=== PATIENT | male | born 1940 | race Caucasian/White ===

== ENCOUNTER 2018-09-14 08:10 | Inpatient (IN) | payer MEDICARE, BC ==
[2018-09-04 10:55] VITALS: Ht 185.4 cm; Wt 104.5 kg
[2018-09-14] VITALS (26 sets, daily range): BP systolic 123–178; BP diastolic 64–86; PULSE 62–100; RESP 12–20
[~2018-09-14] VITALS: Ht 185.4 cm; Wt 104.5 kg
[~2018-09-14 08:10] MED LIST: ACETAMINOPHEN 500 MG TAB PO ONE; ACETAMINOPHEN COD; AMLO-145 PO; ASPI-535 PO; ATEN1TAB3 PO; BENA40TA56 PO; CEFAZOLIN 2 GM/50 ML (PMX) 50 ML (FOR WT < 120 KG) IVPB ONE; DEXAMETHASONE 4 MG/ML 1 ML INJ IV ONE; FERR-55 PO; HYDR200T39 PO; LACTATED RINGER'S 1,000 ML IV SCH; SEVOFLURANE 15 MIN ONE; SIMV40TA3 PO; TRAM50TA2 PO
[2018-09-14] MEDS ORDERED: ACETAMINOPHEN 1000MG/100ML IV 100 ML IVPB ONE (09:00)
[2018-09-14] MEDS ORDERED: INDA2.5T ORAL (09:20)
[2018-09-14] MEDS ORDERED: CELE100C82 ORAL (09:20)
[2018-09-14] MEDS ORDERED: RAMI10CA48 ORAL (09:20)
[2018-09-14] MEDS ORDERED: POTA-57 PO (09:21)
[2018-09-14] MEDS ORDERED: ATOR40TA68 ORAL (09:21)
--- NOTE | 2018-09-14 10:29 | HPN ---
Date/Time of Note Date/Time of Note DATE: 09/14/18 TIME: 10:29 Interval H&P Admission Note Pt. seen H&P reviewed: No system changes JAMES HARRIS Sep 14, 2018 10:29
--- NOTE | 2018-09-14 11:27 | PREAC ---
Date/Time of Note Date/Time of Note DATE: 09/14/18 TIME: 11:24 Anesthesia Eval and Record Evaluation Time Pre-Procedure Interview DATE: 09/14/18 TIME: 11:24 Age 78 Sex male NPO: 8 hrs Preoperative diagnosis RIGHT HIP OSTEOARTHRITIS Planned procedure REVISION RIGHT TOTAL HIP ARTHROPLASTY hip Past Medical History Past Medical History: Includes Cardio: HTN, Dyslipidemia Renal: Other (PROSTATE CANCER) Heme: Anemia (ITON DEF) Surgery & Anesthesia Issues No known issue Meds Anticoagulation: No Beta Pete within 24 hr: No Reason Beta Pete not given: Pt. not on B-Pete Reported Medications Atorvastatin* (Atorvastatin*) 40 Mg Tablet, 1 TAB ORAL DAILY 09/14/18 Potassium Chloride* (Klor-Con*) 20 Meq Tabsr, 10 MEQ PO DAILY, TAB.SA 09/14/18 Ramipril (Ramipril) 10 Mg Capsule, 1 CAP ORAL QHS 09/14/18 Indapamide* (Indapamide*) 2.5 Mg Tablet, 1 TAB ORAL DAILY 09/14/18 Amlodipine Besylate* (Amlodipine Besylate*) 5 Mg Tablet, 5 MG PO DAILY 03/24/11 Discontinued Reported Medications Celecoxib (Celecoxib) 100 Mg Capsule, 1 CAP ORAL BID 09/14/18 Hydroxychloroquine Sulfate* (Hydroxychloroquine Sulfate*) 200 Mg Tablet, 200 MG PO WEEKLY 03/24/11 Tramadol HCl (Tramadol HCl) 50 Mg Tablet, 50 MG PO TID 03/24/11 [Acetaminophen Cod] No Conflict Check, TID 03/24/11 Ferrous Sulfate* (Ferrous Sulfate*) 325 Mg Tablet, 325 MG PO DAILY 03/24/11 Aspirin Ec (Aspir 81) 81 Mg Tablet.dr, 81 MG PO DAILY 03/24/11 Benazepril Hcl* (Benazepril Hcl*) 40 Mg Tablet, 40 MG PO DAILY 03/24/11 Atenolol-Chlorthalidone (Atenolol-Chlorthalidone) 1 Tab Tablet, 1 TAB PO DA 03/24/11 Simvastatin (Simvastatin) 40 Mg Tablet, 40 MG PO HS 03/24/11 Current Medications Lactated Ringer's 1,000 ml @ 25 mls/hr Q24H IV ; Start 09/14/18 at 07:00 Meds reviewed: Yes Allergies Uncoded Allergies: NKDA (Allergy, Unknown, 09/13/18) Allergies Reviewed: Yes Labs/Studies Labs Reviewed: Reviewed by anesthesiologist Blood Bank Test 09/14/18 08:52 Antibody Screen POSITIVE Blood Type O POSITIVE test: N/A Studies: ECG (1ST DEGREE AV BLOCK), CXR (CARDIOMEGALY, NAD) Pre-procedure Exam Last vitals Vital Signs Date Temp Pulse Resp B/P (MAP) Pulse Ox O2 O2 Flow FiO2 Time Delivery Rate 09/14/18 97.0 73 16 160/78 98 Room Air 08:37 (105) Airway: Adequate mouth opening, Adequate thyromental dist Mallampati: Mallampati II Teeth: Abnormal (PARTIAL UPPER DENTURE, SEVERAL MISSING) Lung: Normal Heart: Normal ASA Physical Status ASA physical status: 2 Emergency: None Planned Anesthetic General/MAC: ETT Neuraxial: Spinal Planned Pain Management Sub-arachniod narcotics, Parenteral pain med Pre-operative Attestations Prior to commencing anesthesia and surgery, the patient was re-evaluated, there was verification of: *The patient's identity *The results of appropriate recent lab work and preoperative vital signs *The above evaluation not changing prior to induction *Anesthetic plan, risk benefits, alternative and complications discussed with patient/family; questions answered; patient/family understands, accepts and wishes to proceed. Larry Langston M.D. Sep 14, 2018 11:27
[2018-09-14] MEDS ORDERED: POLYMYXIN B 500000 UNIT INJ ONE (11:28)
[2018-09-14] MEDS ORDERED: BACITRACIN 50000 UNITS INJ ONE (11:29)
[2018-09-14] MEDS ORDERED: FENTAnyl 50 MCG/ML VIAL IV PRN ×3 (11:30)
[2018-09-14] MEDS ORDERED: MIDAZOLAM 1 MG/ML 2 ML INJ IV PRN (11:30)
[2018-09-14] MEDS ORDERED: LABETALOL HCL 20MG INJ IV PRN (11:30)
[2018-09-14] MEDS ORDERED: HYDROmorphONE 1 MG/5 ML IV SYRINGE IV PRN ×3 (11:30)
[2018-09-14] MEDS ORDERED: NALBUPHINE HCL (10 MG/1 ML) INJ IV PRN (11:30)
[2018-09-14] MEDS ORDERED: NALOXONE (0.4 MG/ML) INJ IV PRN ×2 (11:30→15:00)
[2018-09-14] MEDS ORDERED: MEPERIDINE 25 MG INJ IV PRN (11:30)
[2018-09-14] MEDS ORDERED: PROPOFOL 20 ML ONE (11:30)
[2018-09-14] MEDS ORDERED: TRIMETHOBENZAMIDE 100 MG/ML VIAL IM PRN ×2 (11:30)
[2018-09-14] MEDS ORDERED: DIPHENHYDRAMINE 50 MG INJ IV PRN ×2 (11:30)
[2018-09-14] MEDS ORDERED: hydrALAzine 20 MG INJ IV PRN (11:30)
[2018-09-14] MEDS ORDERED: ALBUTEROL 0.083% (NEB) 2.5 MG/3 ML AMP HHN PRN (11:30)
[2018-09-14] MEDS ORDERED: OXYCODONE/ACETAMINOPHEN (5/325) TAB PO PRN ×2 (11:30)
[2018-09-14] MEDS ORDERED: ROCURONIUM 50 MG INJ ONE (11:30)
[2018-09-14] MEDS ORDERED: CEFAZOLIN 1 GM INJ ONE (11:30)
[2018-09-14] MEDS ORDERED: HYDROmorphONE 0.5 MG/0.5 ML SYG IV PRN ×2 (11:30)
[2018-09-14] MEDS ORDERED: ONDANSETRON 4 MG INJ IV PRN ×2 (11:30)
[2018-09-14] MEDS ORDERED: GLYCOPYRROLATE 0.4 MG INJ ONE (11:30)
[2018-09-14] MEDS ORDERED: EPHEDrine SULFATE 50 MG/5 ML SYG IV PRN (11:30)
[2018-09-14] MEDS ORDERED: IPRATROPIUM (NEB) 0.5 MG/2.5 ML AMP HHN PRN (11:30)
[2018-09-14] MEDS ORDERED: NEOSTIGMINE 3 MG/3 ML SYRINGE ONE (11:30)
[2018-09-14] MEDS ORDERED: MIDAZOLAM 1 MG/ML 2 ML INJ ONE (11:31)
[2018-09-14] MEDS ORDERED: DEXAMETHASONE 4 MG/ML 5 ML INJ ONE (11:31)
[2018-09-14] MEDS ORDERED: FENTAnyl 50 MCG/ML VIAL ONE (11:31)
[2018-09-14] MEDS ORDERED: ONDANSETRON 4 MG INJ ONE ×2 (11:31→15:25)
[2018-09-14] MEDS ORDERED: morphine SULFATE/PF (10 MG/10 ML) INJ ONE (11:34)
[2018-09-14] MEDS: TRANEXAMIC ACID 1GM/100ML(PMX) 100 ML AT INCISION X1 IVPB ONE ×2 (12:40)
[2018-09-14] MEDS ORDERED: TRANEXAMIC ACID 1GM/100ML(PMX) 100 ML ONE (12:50)
[2018-09-14] MEDS: TRANEXAMIC ACID 1GM/100ML(PMX) 100 ML AT CLOSURE X1 IVPB ONE ×2 (14:09)
[2018-09-14] MEDS ORDERED: SUGAMMADEX SODIUM 200 MG/2 ML VIAL IV ONE (14:26)
--- NOTE | 2018-09-14 14:36 | SIPON ---
Date/Time of Note Date/Time of Note DATE: 09/14/18 TIME: 14:34 Operative Report Preoperative Diagnosis Failed right total hip replacement, kyxnz-el-egpap prosthesis Postoperative Diagnosis Same, biavd-jc-rywig reaction with tissue necrosis and effusion Operation/Procedure Performed Revision of right total hip replacement Surgeon see signature line environmental services assistant PEDRO LUIS Solis Anesthesia: spinal Estimated blood loss: 250 - 300 ml's Transfusion Required none Specimen Cultures, tissue Grafts/Implants [place] cup, size 66 mm, 40 mm ceramic head with +5 length Complications none JAMES HARRIS Sep 14, 2018 14:36
[2018-09-14] MEDS ORDERED: NACL 0.9% 3 ML SYG IV SCH (15:00)
[2018-09-14] MEDS ORDERED: MAGNESIUM HYDROXIDE 30ML CUP PO PRN (15:00)
[2018-09-14] MEDS ORDERED: KETOROLAC 15 MG INJ IV PRN (15:00)
[2018-09-14] MEDS ORDERED: oxyCODONE 5 MG TAB PO PRN ×2 (15:00)
[2018-09-14] MEDS ORDERED: CEFAZOLIN 2 GM/50 ML (PMX) 50 ML IVPB SCH (15:00)
--- NOTE | 2018-09-14 15:19 | PAC ---
Date/Time of Note Date/Time of Note DATE: 09/14/18 TIME: 15:19 Post-Anesthesia Notes Post-Anesthesia Note Last documented vital signs Vital Signs Date Temp Pulse Resp B/P (MAP) Pulse Ox O2 O2 Flow FiO2 Time Delivery Rate 09/14/18 97.0 73 16 160/78 98 Room Air 08:37 (105) Activity: WNL Respiratory function: WNL Cardiovascular function: WNL Mental status: Baseline Pain reasonably controlled: Yes Hydration appropriate: Yes Nausea/Vomiting absent: Yes Larry Langston M.D. Sep 14, 2018 15:19
--- NOTE | 2018-09-14 15:59 | OPR ---
Date/Time of Note Date/Time of Note DATE: 09/14/18 TIME: 15:53 Operative Report Procedure Date: Sep 14, 2018 Preoperative Diagnosis Failed right total hip replacement, ewlym-rc-tgsws hip Postoperative Diagnosis Same, vzzjw-bn-izsql reaction Operation/Procedure Performed Revision of right hip replacement Surgeon see signature line Game Moderator PEDRO LUIS Solis Anesthesia Type: spinal Estimated Blood Loss: 250 - 300 ml's Transfusion none Specimen Cultures, tissue Grafts/Implants 66 mm [place] cup, 40 mm ceramic head, highly cross-linked +4 polyethylene Tubes/Drains None Complications none Pt Condition Post Procedure: stable Disposition: PACU Indications The patient is a 78-year-old male who had a right gzajn-yx-reasq hip replacement. Patient has increased pain swelling and inability to walk. He is diagnosed with a xlzqt-ud-fylmz reaction Procedure Description Patient was placed supine on the operating room table. The right hip was prepped and draped in usual manner. Preoperative antibiotics were administered. An anterior incision was made. The plane between the sartorius and tensor fasc ia naa was developed in a blunt fashion. Branches of the circumflex vessels were identified and cauterized with aqua mantis. The hip capsule was opened. A large effusion was encountered. There was approximately 3-400 mL of effusion. Cultures were obtained. There was evidence of metallosis and staining of the tissue. There was evidence of a tevbl-gh-pbdnp reaction with some necrosis of the lateral and posterior tissue. All abnormal tissue was removed and sent for pathology. The lower extremity was then placed under traction. The femoral head was removed with the help of a bone tamp. The trunnion was cleaned. The stem appeared to be well fixed. The upper part of the stem was thoroughly irrigated and cleaned with gauze. The stem was then retracted out of the way. The cup was completely exposed. The cup was removed with the help of an explant. The acetabulum behind the cup was curetted. There was no evidence of infection. All abnormal tissue around the acetabulum was excised as well. Reaming of the acetabulum was done with [employer] reamers up to a size 65. A 66 cup was well fitting. A 66 mm [place] cup was then placed in 40 degrees of abduction and 20 degrees of anteversion. 2 screws were used to enhance fixation. Liner was placed to accommodate 40 mm femoral head. Trial femoral heads were placed and a 40+5 length resulted in a stable hip with good range of motion. X-rays were obtained to confirm proper placement of the implants and leg length. Leg length was felt to be slightly long compared to the left. This was accepted due to excellent stability of the hip. The trials were then removed. The wound was thoroughly irrigated and hemostasis confirmed. The periarticular tissues were injected with pain cocktail. Final components were then placed including 40 mm +4 highly cross-linked liner and a 40 mm +5 ceramic head. The reduction was stable. The wound was irrigated and closed in layers using #1 strata fix for deep fascia, 2-0 Vicryl for subcutaneous tissue and 3-0 Monocryl for the skin. Before this, the capsule was closed with #5 Ethibond suture. Patient was transferred to the recovery room in stable condition JAMES HARRIS Sep 14, 2018 15:59
[2018-09-14] MEDS: LACTATED RINGER'S 1,000 ML IV SCH ×2 (16:44→20:58)
[2018-09-14] MEDS ORDERED: ACETAMINOPHEN 500 MG TAB PO PRN (19:00)
[2018-09-14] MEDS: BENAZEPRIL 40 MG TAB PO SCH (20:58)
[2018-09-14] MEDS: GABAPENTIN 100 MG CAP PO SCH (20:58)
[2018-09-14] MEDS: CEFAZOLIN 2 GM/50 ML (PMX) 50 ML IVPB SCH (22:23)
--- NOTE | 2018-09-14 23:27 | HP ---
DATE OF ADMISSION: 09/14/2018 CHIEF COMPLAINT: Right hip pain. HISTORY OF PRESENT ILLNESS: The patient is a 78-year-old gentleman with history of hypertension, dys lipidemia, prostate cancer, and history of bilateral total hip replacement. The patient reported his tory of recurrent dislocation. The patient was referred to Dr. Harris. Because of right hip pain. The patient was diagnosed with failed right total hip replacement and was diagnosed with qaapj-nz-spr al hip. The patient was brought in the hospital today and underwent revision of right hip replacemen t. The patient postoperatively is doing better. His pain is well controlled. Denies any chest pain . No reported shortness of breath, no reported fever or chills, no reported nausea or vomiting and n o reported dysuria or hematuria. Morales catheter is draining clear urine. No previous history of foc al weakness. The patient remains awake, alert, and fairly oriented. No recent fever or chills. No history of headache, dizziness, or syncope. No history of focal weakness prior to admission. Denies any numbness, tingling, or weakness in any extremity. REVIEW OF SYSTEMS: A total of 12 systems were reviewed, all pertinent positive and negative findings have been described in HPI. Rest of the systems is unremarkable. The patient does not have any his tory of psychiatric or endocrine disorder. ALLERGIES: NONE. SOCIAL HISTORY: No smoking or alcohol abuse. FAMILY HISTORY: Negative for prostate cancer or coronary artery disease. MEDICATION LIST PRIOR TO ADMISSION: Reviewed. PHYSICAL EXAMINATION: GENERAL: Awake, alert, and fairly oriented. VITAL SIGNS: Temperature 98.2, pulse 74, respirations 15, blood pressure 144/82, and O2 saturation 9 5% on room air. HEENT: Atraumatic head. Conjunctivae normal. Pupils are round and reactive to light. Nose and ear s normal externally. Oropharynx clear. The patient uses dentures. NECK: Supple. No mass, no thyromegaly, and no carotid bruit. CHEST: Fairly clear. No use of accessory muscles. CARDIOVASCULAR: S1 and S2 normal. No murmur. ABDOMEN: Soft, nondistended, and nontender. No palpable mass. EXTREMITIES: No edema. Pedal pulses palpable. SKIN: Without acute rash. NEUROLOGIC: The patient is awake, alert, and fairly oriented with no gross focal deficit although ex am was limited because of recent right hip surgery. LABORATORY DATA: INR 1, PT 10.7, hemoglobin 13.7, white blood cells 6.7, PTT 30, albumin 4.3, alkali ne phosphatase 85, ALT 9, AST 11, bilirubin 0.6, calcium 9.2, bicarbonate 31, creatinine 1, BUN 18, s odium 140, potassium 4.2, and glucose 93. EKG revealed normal sinus rhythm with no ST-T changes. est x-ray: No active disease. IMPRESSION AND PLAN: 1. Failed right total hip replacement, tqbed-sf-wkghs hip status post revision of right total hip re placement. The patient will be started on aspirin for deep vein thrombosis prophylaxis and for pain control, the patient will be started on Celebrex, gabapentin, and oxycodone depending upon severity o f the pain. The patient will also be given Toradol on p.r.n. basis. 2. Hypertension. We will resume Norvasc, Lozol, and JAYA inhibitor at home. We will continue to mon itor electrolytes. 3. Dyslipidemia. We will continue Lipitor. 4. Prostate cancer status post prostatectomy and also some sort of bladder procedure in 2018. Detai ls not available. PT and OT evaluation and treatment as tolerated. The patient also received epidur al Duramorph management. as per anesthesiology. We will continue to follow postoperatively. Dictated By: CHAO BRINK MD AB/NTS Conf#: [id number] DID#: [id number] CC: JAMES HARRIS MD; CHAO BRINK MD;*EndCC*
[2018-09-15] VITALS: BP 103/56; PULSE 77; RESP 20
[2018-09-15 04:00] VITALS: BP 130/65; PULSE 68; RESP 18
[2018-09-15] MEDS: PANTOPRAZOLE (EC) 40 MG TAB PO SCH (05:16)
[2018-09-15] MEDS: CEFAZOLIN 2 GM/50 ML (PMX) 50 ML IVPB SCH ×2 (05:17→12:54)
[2018-09-15 07:25] VITALS: BP 131/62; PULSE 61; RESP 19
[2018-09-15] MEDS: POTASSIUM CHLORIDE (SR) 10 MEQ TAB PO SCH (08:33)
[2018-09-15] MEDS: ATORVASTATIN 40 MG TAB PO SCH (08:33)
[2018-09-15] MEDS: ASPIRIN (EC) 81 MG TAB PO SCH ×2 (08:33→20:59)
[2018-09-15] MEDS: DOCUSATE SODIUM 100 MG CAP PO SCH ×2 (08:33→20:59)
[2018-09-15] MEDS: GABAPENTIN 100 MG CAP PO SCH ×3 (08:33→20:59)
[2018-09-15] MEDS: CELECOXIB 100 MG CAP PO SCH ×2 (08:33→20:59)
[2018-09-15] MEDS: AMLODIPINE 5 MG TAB PO SCH (08:34)
--- NOTE | 2018-09-15 11:57 | PN ---
Date/Time of Note Date/Time of Note DATE: 09/15/18 TIME: 11:51 Assessment/Plan VTE Prophylaxis Risk score (from Ns)>0 risk: 6 SCD applied (from [facility] [place]): Yes SCD contraindicated: other Pharmacological prophylaxis: other Pharm contraindication: other Lines/Catheters IV Catheter Type (from Nrsg): Peripheral IV Urinary Cath still in place: Yes Reason Cath still needed: urinary retention Assessment/Plan Assessment/Plan 1. Failed right total hip replacement, qivhu-dt-iusdf hip status post revision of right total hip replacement. The patient will be started on aspirin for deep vein thrombosis prophylaxis and for pain control, the patient will be started on Celebrex, gabapentin, and oxycodone depending upon severity of the pain. The patient will also be given Toradol on p.r.n. basis. 2. Hypertension. We will resume Norvasc, Lozol, and JAYA inhibitor at home. We will continue to monitor electrolytes. 3. Dyslipidemia. We will continue Lipitor. 4. Prostate cancer status post prostatectomy and also some sort of bladder procedure in 2018. Details not available. PT and OT evaluation and treatment as tolerated. The patient also received epidural Duramorph management. as per anesthesiology. We will continue to follow postoperatively. Result Diagram: 09/15/1841909/15/180 Results 24hrs Laboratory Tests Test 09/15/18 04:20 White Blood Count 10.0 Red Blood Count 3.90 L Hemoglobin 10.7 L Hematocrit 33.9 L Mean Corpuscular Volume 86.9 Mean Corpuscular Hemoglobin 27.4 L Mean Corpuscular Hemoglobin Concent 31.6 L Red Cell Distribution Width 15.5 H Platelet Count 166 Mean Platelet Volume 10.7 H Immature Granulocytes % 0.400 Neutrophils % 90.4 H Lymphocytes % 4.4 L Monocytes % 4.7 Eosinophils % 0.0 Basophils % 0.1 Nucleated Red Blood Cells % 0.0 Immature Granulocytes # 0.040 H Neutrophils # 9.1 H Lymphocytes # 0.4 L Monocytes # 0.5 Eosinophils # 0.0 Basophils # 0.0 Nucleated Red Blood Cells # 0.0 Sodium Level 137 Potassium Level 3.6 Chloride Level 101 Carbon Dioxide Level 28 Anion Gap 8 Blood Urea Nitrogen 23 H Creatinine 0.95 Est Glomerular Filtrat Rate mL/min Glucose Level 123 Calcium Level 8.7 Exam/Review of Systems Exam Vitals Vital Signs Date Temp Pulse Resp B/P (MAP) Pulse Ox O2 O2 Flow FiO2 Time Delivery Rate 09/15/18 98.7 61 19 131/62 96 Room Air 07:25 (85) 09/14/18 2.0 17:45 Intake and Output 09/14/18 09/14/18 09/15/18 1414:59 22:59 06:59 IntakeIntake Total 2600 ml 930 ml 730 ml OutputOutput Total 550 ml 200 ml BalanceBalance 2050 ml 730 ml 730 ml Constitutional: alert, oriented, well developed Psych: nl mood/affect Head: atraumatic ENMT: nl external ears & nose Respiratory: clear to auscultation Cardiovascular: nl pulses, other (S1S2) Gastrointestinal: soft, non-tender Musculoskeletal: nl extremities to inspection Extremities: normal pulses Neurological: nl mental status, nl speech Skin: other (right hip dressing- DDI) Results Results 24hrs Laboratory Tests Test 09/15/18 04:20 White Blood Count 10.0 Red Blood Count 3.90 L Hemoglobin 10.7 L Hematocrit 33.9 L Mean Corpuscular Volume 86.9 Mean Corpuscular Hemoglobin 27.4 L Mean Corpuscular Hemoglobin Concent 31.6 L Red Cell Distribution Width 15.5 H Platelet Count 166 Mean Platelet Volume 10.7 H Immature Granulocytes % 0.400 Neutrophils % 90.4 H Lymphocytes % 4.4 L Monocytes % 4.7 Eosinophils % 0.0 Basophils % 0.1 Nucleated Red Blood Cells % 0.0 Immature Granulocytes # 0.040 H Neutrophils # 9.1 H Lymphocytes # 0.4 L Monocytes # 0.5 Eosinophils # 0.0 Basophils # 0.0 Nucleated Red Blood Cells # 0.0 Sodium Level 137 Potassium Level 3.6 Chloride Level 101 Carbon Dioxide Level 28 Anion Gap 8 Blood Urea Nitrogen 23 H Creatinine 0.95 Est Glomerular Filtrat Rate mL/min Glucose Level 123 Calcium Level 8.7 Medications Medication Current Medications Lactated Ringer's 1,000 ml @ 80 mls/hr [id number] IV Last administered on 09/14/18at 20:58; Admin Dose 80 MLS/HR; Start 09/14/18 at 14:36 Oxycodone HCl (Roxicodone) 15 mg Q4H PRN PO .PAIN; Start 09/14/18 at 15:00 Oxycodone HCl (Roxicodone) 10 mg Q4H PRN PO .PAIN; Start 09/14/18 at 15:00 Oxycodone HCl (Roxicodone) 5 mg Q4H PRN PO .PAIN; Start 09/14/18 at 15:00 Ondansetron HCl (Zofran Inj) 4 mg Q4H PRN IV NAUSEA/VOMITING; Start 09/15/18 at 15:00 Celecoxib (Celebrex) 100 mg BID PO Last administered on 09/15/18at 08:33; Admin Dose 100 MG; Start 09/15/18 at 09:00 Gabapentin (Neurontin) 100 mg TID PO Last administered on 09/15/18 08:33; Admin Dose 100 MG; Start 09/14/18 at 21:00 Pantoprazole (Protonix Tab) 40 mg DAILY@06 PO Last administered on 09/15/18at 05:16; Admin Dose 40 MG; Start 09/15/18 at 06:00 Docusate Sodium (Colace) 200 mg BID PO Last administered on 09/15/18at 08:33; Admin Dose 200 MG; Start 09/15/18 at 09:00; Stop 09/17/18 at 21:01 Magnesium Hydroxide (Milk Of Mag) 30 ml HS PRN PO .CONSTIPATION; Start 09/14/18 at 15:00 Ketorolac Tromethamine (Toradol) 15 mg Q6H PRN IV .PAIN Last administered on 09/15/18at 00:59; Admin Dose 15 MG; Start 09/14/18 at 15:00 Naloxone HCl (Narcan) 0.2 mg Q2M PRN IV .RESP RATE; Start 09/14/18 at 15:00 IV Flush (NS 3 ml) 3 ml per protocol IV ; Start 09/14/18 at 15:00 Aspirin (Halfprin) 81 mg BID PO Last administered on 09/15/18at 08:33; Admin Dose 81 MG; Start 09/15/18 at 09:00 Hydromorphone HCl (Dilaudid) 0.2 mg Q2H PRN IV .PAIN 1-5; Start 09/14/18 at 11:30; Stop 09/15/18 at 15:00 Hydromorphone HCl (Dilaudid) 0.4 mg Q2H PRN IV .PAIN 6-10; Start 09/14/18 at 11:30; Stop 09/15/18 at 15:00 Diphenhydramine HCl (Benadryl) 25 mg Q4H PRN IV .PRURITUS; Start 09/14/18 at 11:30; Stop 09/15/18 at 15:00 Nalbuphine HCl (Nubain) 10 mg Q4H PRN IV .PRURITUS; Start 09/14/18 at 11:30; Stop 09/15/18 at 15:00 Ondansetron HCl (Zofran Inj) 4 mg Q6H PRN IV .NAUSEA/VOMITING; Start 09/14/18 at 11:30; Stop 09/15/18 at 15:00 Trimethobenzamide HCl (Tigan) 200 mg Q6H PRN IM .NAUSEA/VOMITING; Start 09/14/18 at 11:30; Stop 09/15/18 at 15:00 Naloxone HCl (Narcan) 0.2 mg Q2M PRN IV .RESP RATE; Start 09/14/18 at 11:30; Stop 09/15/18 at 15:00 Miscellaneous Information (* Miscellaneous Pharmacy Order) DURAMORPH: 0.1 MG SPI... GIVEN NEURAXIAL XX ; Start 09/14/18 at 11:30; Stop 09/15/18 at 15:00 Cefazolin Sodium/ Dextrose 50 ml @ 100 mls/hr Q8H IVPB Last administered on 09/15/18at 05:17; Admin Dose 100 MLS/HR; Start 09/14/18 at 20:00; Stop 09/15/18 at 12:29 Amlodipine Besylate (Norvasc) 5 mg DAILY PO Last administered on 09/15/18at 08:34; Admin Dose 5 MG; Start 09/15/18 at 09:00 Atorvastatin Calcium (Lipitor) 40 mg DAILY PO Last administered on 09/15/18at 08:33; Admin Dose 40 MG; Start 09/15/18 at 09:00 Indapamide (Lozol) 2.5 mg DAILY PO ; Start 09/15/18 at 09:00 Potassium Chloride (Klor-Con 10) 10 meq DAILY PO Last administered on 09/15/18at 08:33; Admin Dose 10 MEQ; Start 09/15/18 at 09:00 Benazepril HCl (Lotensin) 40 mg QHS PO Last administered on 09/14/18at 20:58; Admin Dose 40 MG; Start 09/14/18 at 21:00 Acetaminophen (Tylenol Tab) 500 mg Q4H PRN PO MILD PAIN(1-3)OR ELEVATED TEMP; Start 09/14/18 at 19:00 BIRGIT DAVE Sep 15, 2018 11:57
[2018-09-15] MEDS: INDAPAMIDE 2.5 MG PO SCH (12:34)
[2018-09-15] MEDS ORDERED: ONDANSETRON 4 MG INJ IV PRN (15:00)
[2018-09-15] MEDS: oxyCODONE 5 MG TAB PO PRN (16:02)
[2018-09-15 19:20] VITALS: BP 130/61; PULSE 60; RESP 20
[2018-09-15] MEDS: BENAZEPRIL 40 MG TAB PO SCH (20:59)
[2018-09-16] MEDS: oxyCODONE 5 MG TAB PO PRN (00:11)
[2018-09-16 02:20] VITALS: BP 159/71; PULSE 62; RESP 20
[2018-09-16] MEDS: PANTOPRAZOLE (EC) 40 MG TAB PO SCH (05:38)
[2018-09-16 08:20] VITALS: BP 142/67; PULSE 59; RESP 18
[2018-09-16] MEDS: DOCUSATE SODIUM 100 MG CAP PO SCH (09:02)
[2018-09-16] MEDS: CELECOXIB 100 MG CAP PO SCH (09:02)
[2018-09-16] MEDS: GABAPENTIN 100 MG CAP PO SCH ×2 (09:02→14:08)
[2018-09-16] MEDS: POTASSIUM CHLORIDE (SR) 10 MEQ TAB PO SCH (09:02)
[2018-09-16] MEDS: ATORVASTATIN 40 MG TAB PO SCH (09:02)
[2018-09-16] MEDS: ASPIRIN (EC) 81 MG TAB PO SCH (09:02)
[2018-09-16] MEDS: AMLODIPINE 5 MG TAB PO SCH (09:02)
[2018-09-16] MEDS: INDAPAMIDE 2.5 MG PO SCH (09:03)
[2018-09-16 13:44] VITALS: BP 138/64; PULSE 69; RESP 18
--- NOTE | 2018-09-17 08:48 | DS ---
DATE OF ADMISSION: 09/14/2018 DATE OF DISCHARGE: 09/16/2018 ADMISSION DIAGNOSES: 1. Failed right total hip replacement, status post revision. 2. Hypertension. 3. Dyslipidemia. 4. Prostate cancer status post prostatectomy. FOLLOWUP: The patient to follow up with PMD and Dr. Harris as an outpatient. DISCHARGE MEDICATIONS: 1. Celebrex 100 mg b.i.d. 2. Neurontin 100 mg t.i.d. 3. Protonix 40 mg once a day. 4. Colace 200 b.i.d. 5. Aspirin 81 mg twice a day. 6. Norvasc 5 mg daily. 7. Lipitor 40 mg daily. 8. Lozol 2.5 mg daily. 9. Benazepril 10 mEq daily. 10. Benazepril 40 mg daily. 11. Tylenol 500 mg q.4 p.r.n. REASON FOR ADMISSION AND HOSPITAL COURSE: The patient is a 78-year-old gentleman with history of hyp ertension, dyslipidemia, prostate cancer status post surgery, history of bilateral total hip replacem ent. The patient reported increasing pain in the right hip and also history of recurrent right hip d islocation. The patient was seen by Dr. Harris as an outpatient and recommended a revision of total hip. The patient was brought in to hospital on 09/14/2018 and underwent a revision of right hip repl acement. The patient's postoperative course was rather uncomplicated. The patient received aspirin for DVT prophylaxis. For pain control, patient was given Neurontin, Celebrex as well as oxycodone. The patient also had epidural Duramorph postoperatively. The patient this morning is breathing comfo rtably, denies any chest pain. Right hip pain is much better. Denies any abdominal pain. No histor y of nausea, vomiting. PHYSICAL EXAMINATION: GENERAL: The patient is awake, alert. VITAL SIGNS: Temperature 98.1, pulse 69, respiration 18, blood pressure 138/64, O2 saturation 96% on room air. HEENT: No eye discharge or redness. Conjunctivae and lids normal. Oropharynx clear. NECK: Supple, no mass, no thyromegaly. CHEST: Fairly clear. No use of accessory muscles. CARDIOVASCULAR: S1, S2 normal. No murmur, gallop, rub. ABDOMEN: Soft, nontender. Normoactive bowel sounds, no organomegaly. EXTREMITIES: No ankle edema. Pulses palpable. SKIN: Without acute rash. NEUROLOGIC: The patient is awake, alert with no gross focal deficit. CONDITION ON DISCHARGE: Stable. LABORATORY DATA: Done this morning, WBC 7.4, hemoglobin 11, platelet 150. Sodium 140, potassium 3.9 , BUN 23, creatinine 1, glucose 92, calcium 8.8. DISCHARGE DIET: Two-gram sodium cardiac diet. Dictated By: CHAO BRINK MD AB/NTS Conf#: [id number] DID#: [id number] CC: JAMES HARRIS MD;*EndCC*
== END 2018-09-16 17:20 | disposition home health service (06) | DRG 468 ==
LOC: REC 08:10 → MS1 16:22
PROVIDERS: ADMIT Orthopaedic Surgery; ATTEND Orthopaedic Surgery
PROC: 0SP90JZ Removal of Synthetic Substitute from Right Hip Joint, Open Approach (ICD-10-PCS; 2018-09-14)
PROC: 0SR904Z Replacement of Right Hip Joint with Ceramic on Polyethylene Synthetic Substitute, Open Approach (ICD-10-PCS; principal; 2018-09-14 10:30)
DX: T84.090A Other mechanical complication of internal right hip prosthesis, initial encounter (principal); I10 Essential (primary) hypertension; E78.5 Hyperlipidemia, unspecified; Y79.2 Prosthetic and other implants, materials and accessory orthopedic devices associated with adverse incidents; Z85.46 Personal history of malignant neoplasm of prostate; Z96.642 Presence of left artificial hip joint; Z90.79 Acquired absence of other genital organ(s)
CPT/HCPCS: 73530; 80048; 85025; 86850; 86870; 86900; 86901; 87070; 87075; 87081; 87086; 87102; 88300; 88304; 97116; 97161; 97165; 97530; C1713; C1776; J0131; J0171; J0690; J0735; J1100; J1200; J1885; J2250; J2274; J2405; J2710; J2795; J3010; J7120